=== PATIENT | male | born 1950 | race Caucasian/White ===

== ENCOUNTER 2016-06-11 14:38 | Observation (INO) | payer BC, OTHER ==
[~2016-06-11] VITALS: Ht 175.3 cm; Wt 72.6 kg
[2016-06-11 15:42] LABS: Albumin 3.8 g/dL (3.4-5.0); Anion Gap 8 (5-15); Aspartate Aminotransferase 92 U/L (15-37); BUN/Creatinine Ratio 14.6; Basophils # (auto) 0 uL; Basophils % (auto) 0.1 % (0.0-2.0); Blood Urea Nitrogen 14 mg/dL (7-18); Calcium 8.9 mg/dL (8.5-10.1); Carbon Dioxide 26 mmol/L (21-32); Chloride 107 mmol/L (98-107); Eosinophils # (auto) 0.1 uL; Eosinophils % (auto) 1.1 % (0.0-7.0); GFR African American 101 mL/min; GFR Non-African American 84 mL/min; Glucose 125 mg/dL (74-106); Hematocrit 42.2 % (41.0-53.0); Hemoglobin 14.1 g/dL (13.5-17.5); Lymphocytes # (auto) 0.7 uL; Lymphocytes % (auto) 8.2 % (10.0-50.0); Mean Corpuscular Hemoglobin 32.6 pg (28.0-32.0); Mean Corpuscular Hgb Conc. 33.3 g/dL (32.0-36.0); Mean Corpuscular Volume 97.9 fL (80.0-100.0); Mean Platelet Volume 8.8 fL (7.4-10.4); Monocytes # (auto) 0.7 uL; Monocytes % (auto) 8.5 % (0.0-12.0); Neutrophils # (auto) 6.5 uL; Neutrophils % (auto) 82.1 % (37.0-80.0); Platelet Count (auto) 164 10^3/uL (140-450); Potassium 4.3 mmol/L (3.5-5.1); Red Cell Distribution Width 14.9 % (11.6-16.0); Sodium 141 mmol/L (136-145)
[2016-06-11 15:46] LABS: Alkaline Phosphatase 347 U/L (45-117); Bilirubin, Total 3.6 mg/dL (0.2-1.0); Total Protein 8.3 g/dL (6.4-8.2)
[2016-06-11 17:37] LABS: Magnesium 2.3 mg/dL (1.6-2.6)
[2016-06-11 17:53] LABS: Partial Thromboplastin Time 27.8 sec (22.64-33.71)
[2016-06-11 19:04] LABS: INR 1.25 (0.9-1.15); Prothrombin Time 12.9 sec (9.37-12.3)
[2016-06-11 21:08] LABS: Urine Blood Negative /uL (Negative); Urine Glucose Normal (Normal); Urine Ketone Negative (Negative); Urine Nitrite Negative (Negative); Urine RBC <1 /hpf (0 - 3); Urine Urobilinogen >12.0 mg/dL (Negative)
[2016-06-11 21:09] LABS: Urine Color Brown (Yellow)
[2016-06-11 21:11] LABS: Urine Bilirubin 2+ (Negative)
[2016-06-11] MEDS ORDERED: ONDANSETRON HCL 4 MG/2 ML VIAL ONE (21:20)
[2016-06-11] MEDS ORDERED: ACETAMINOPHEN 325 MG TAB PO ONE ×2 (21:20→21:30)
[2016-06-11] MEDS ORDERED: ONDANSETRON HCL 4 MG/2 ML VIAL IV ONE (21:30)
[2016-06-11 23:18] VITALS: BP 117/65
== END 2016-06-11 23:29 | disposition left against medical advice (07) | DRG 446 ==
LOC: ER 14:38 → OVERFLOW 17:13 → ER 23:29
PROVIDERS: ADMIT Family Medicine; ATTEND Family Medicine
DX: K80.20 Calculus of gallbladder without cholecystitis without obstruction (principal); N20.0 Calculus of kidney; R79.89 Other specified abnormal findings of blood chemistry; K21.9 Gastro-esophageal reflux disease without esophagitis; I10 Essential (primary) hypertension; Z82.49 Family history of ischemic heart disease and other diseases of the circulatory system; Z83.3 Family history of diabetes mellitus; Z96.619 Presence of unspecified artificial shoulder joint
CPT/HCPCS: 36415; 71010; 74176; 80053; 81001; 82140; 82150; 83690; 83735; 84484; 85025; 85610; 85730; 87040; 87086; 93005; 96374; 99285; G0378; J2405

== ENCOUNTER 2018-01-08 14:53 | Inpatient (IN) | payer MEDICARE ==
[~2018-01-08] VITALS: Ht 172.7 cm; Wt 78.3 kg
[2018-01-08] MEDS ORDERED: PANTOPRAZOLE 40 MG/10 ML VIAL IV STA (16:04)
[2018-01-08] MEDS ORDERED: MORPHINE SULFATE 4 MG/ML SYR/VIAL IV ONE (16:15)
[2018-01-08] MEDS ORDERED: ONDANSETRON HCL 4 MG/2 ML VIAL IV ONE (16:15)
[2018-01-08 16:43] LABS: Basophils # (auto) 0 uL; Basophils % (auto) 0.2 % (0.0-2.0); Eosinophils # (auto) 0 uL; Hemoglobin 15.9 g/dL (13.5-17.5); Lymphocytes # (auto) 0.3 uL; Monocytes # (auto) 0.4 uL; White Blood Cell 7.4 10^3/uL (4.4-10.8)
[2018-01-08 16:44] LABS: Eosinophils % (auto) 0.3 % (0.0-7.0); Hematocrit 45.4 % (41.0-53.0); Lymphocytes % (auto) 3.5 % (10.0-50.0); Mean Corpuscular Hemoglobin 35.1 pg (28.0-32.0); Mean Corpuscular Hgb Conc. 35.1 g/dL (32.0-36.0); Monocytes % (auto) 5.7 % (0.0-12.0); Neutrophils # (auto) 6.7 uL; Neutrophils % (auto) 90.3 % (37.0-80.0); Platelet Count (auto) 98 10^3/uL (140-450); Red Blood Cells 4.54 10^6/uL (4.5-5.90); Red Cell Distribution Width 14.2 % (11.8-14.3)
[2018-01-08 16:55] LABS: Albumin 3.7 g/dL (3.4-5.0); BUN/Creatinine Ratio 16.4; INR 1.37 (0.9-1.15); Magnesium 2.4 mg/dL (1.6-2.6); Partial Thromboplastin Time 26.8 sec (23.78-33.04); Potassium 4.1 mmol/L (3.5-5.1); Prothrombin Time 14.4 sec (9.27-12.13)
[2018-01-08 16:58] LABS: Bilirubin, Total 7.9 mg/dL (0.2-1.0); Total Protein 8.2 g/dL (6.4-8.2)
[2018-01-08] MEDS ORDERED: MORPHINE SULFATE 4 MG/ML SYR/VIAL IV PRN ×2 (19:00)
[2018-01-08] MEDS ORDERED: LORazepam 2MG/ML-1ML VIAL IV PRN (19:00)
[2018-01-08] MEDS ORDERED: DEXTROSE (50%) 50ML SYRG IV PRN (19:00)
[2018-01-08] MEDS ORDERED: ONDANSETRON HCL 4 MG/2 ML VIAL IV PRN (19:00)
[2018-01-08] MEDS ORDERED: NITROGLYCERIN 0.4 MG SL TAB SL PRN (19:00)
[2018-01-08] MEDS ORDERED: LEVOFLOXACIN 500MG 100 ML IV ONE (19:00)
[2018-01-08] MEDS: PANTOPRAZOLE 40 MG/10 ML VIAL IV ONE ×2 (19:26→19:31)
[2018-01-08] MEDS: SODIUM CHLORIDE 0.9% 1,000 ML IV SCH (19:26)
[2018-01-08 20:00] LABS: Urine Bacteria NONE SEEN /hpf (None Seen); Urine Blood Negative /uL (Negative); Urine Mucus FEW (None Seen); Urine WBC 4 /hpf (0 - 3)
[2018-01-08 21:50] VITALS: BP 139/79
[2018-01-08 22:00] VITALS: BP 139/79
[2018-01-08] MEDS: MORPHINE SULFATE 4 MG/ML SYR/VIAL IV PRN (22:28)
[2018-01-08] MEDS: InsuLIN REG 1unit/0.01ml Soln (100units/ml) SC SCH (23:38)
[2018-01-08] MEDS: ACCU-CHEK COMFORT CURVE STRIP VI SCH (23:38)
[2018-01-08] MEDS: metroNIDAZOLE 500MG/100ML 100 ML IV SCH (23:38)
[2018-01-09] MEDS ORDERED: ACETAMINOPHEN 325 MG TAB PO PRN (00:30)
[2018-01-09] MEDS ORDERED: PRO20T GT (01:40)
[2018-01-09] MEDS ORDERED: ALLO100T PO (01:40)
[2018-01-09] MEDS ORDERED: PANT40TA2 PO (01:40)
[2018-01-09] MEDS ORDERED: COLC1CAP PO (01:40)
[2018-01-09] MEDS ORDERED: FOLI1TAB6 PO (01:40)
[2018-01-09] MEDS ORDERED: LACT10SO3 PO (01:40)
[2018-01-09 05:00] VITALS: BP 107/70
[2018-01-09] MEDS: SODIUM CHLORIDE 0.9% 1,000 ML IV SCH ×2 (05:18→13:44)
[2018-01-09] MEDS: metroNIDAZOLE 500MG/100ML 100 ML IV SCH ×3 (05:55→17:30)
[2018-01-09] MEDS: InsuLIN REG 1unit/0.01ml Soln (100units/ml) SC SCH (05:55)
[2018-01-09] MEDS: ACCU-CHEK COMFORT CURVE STRIP VI SCH (05:55)
[2018-01-09] MEDS: MORPHINE SULFATE 4 MG/ML SYR/VIAL IV PRN (06:24)
[2018-01-09 06:25] LABS: Basophils # (auto) 0 uL; Basophils % (auto) 0.3 % (0.0-2.0); Eosinophils # (auto) 0 uL; Monocytes # (auto) 0.7 uL; Nucleated Red Blood Cells % 0.1 %; Platelet Count (auto) 89 10^3/uL (140-450)
[2018-01-09 06:28] LABS: Eosinophils % (auto) 0.3 % (0.0-7.0); Hematocrit 40.7 % (41.0-53.0); Hemoglobin 14.3 g/dL (13.5-17.5); Lymphocytes # (auto) 0.8 uL; Lymphocytes % (auto) 10.4 % (10.0-50.0); Mean Corpuscular Hemoglobin 35.3 pg (28.0-32.0); Mean Corpuscular Hgb Conc. 35.2 g/dL (32.0-36.0); Mean Corpuscular Volume 100.1 fL (80.0-100.0); Monocytes % (auto) 9.6 % (0.0-12.0); Neutrophils # (auto) 5.9 uL; Neutrophils % (auto) 79.4 % (37.0-80.0); Red Blood Cells 4.07 10^6/uL (4.5-5.90); Red Cell Distribution Width 14.2 % (11.8-14.3); White Blood Cell 7.4 10^3/uL (4.4-10.8)
[2018-01-09 06:47] LABS: Calcium 7.9 mg/dL (8.5-10.1); Potassium 3.9 mmol/L (3.5-5.1)
[2018-01-09 06:49] LABS: BUN/Creatinine Ratio 15.8
[2018-01-09 06:51] LABS: Bilirubin, Total 8.8 mg/dL (0.2-1.0)
[2018-01-09 07:55] VITALS: BP 97/61
[2018-01-09 09:16] VITALS: BP 97/61
[2018-01-09] MEDS: PANTOPRAZOLE 40 MG/10 ML VIAL IV SCH (10:30)
[2018-01-09] MEDS: LEVOFLOXACIN 500MG 100 ML IV SCH (10:30)
[2018-01-09 13:03] VITALS: BP 108/70
[2018-01-09] MEDS: guaiFENesin-DM 100/10mg/5ml SYR PO PRN (14:28)
[2018-01-09 17:00] VITALS: BP 110/61
[2018-01-09] MEDS: ACETAMINOPHEN 325 MG TAB PO PRN (18:32)
[2018-01-09 21:58] VITALS: BP 119/60
[2018-01-09] MEDS: PROMETHAZINE HCL 25 MG/ML 1ML IV PRN (23:09)
[2018-01-10] MEDS: metroNIDAZOLE 500MG/100ML 100 ML IV SCH ×5 (00:20→23:57)
[2018-01-10] MEDS ORDERED: PROCHLORPERAZINE EDISYLATE 5 MG/ML 2ML VIAL IV ONE (01:15)
[2018-01-10] MEDS: SODIUM CHLORIDE 0.9% 1,000 ML IV SCH ×3 (02:58→21:02)
[2018-01-10 05:00] VITALS: BP 120/58
[2018-01-10 07:11] LABS: Basophils # (auto) 0 uL; Basophils % (auto) 0.4 % (0.0-2.0); Eosinophils # (auto) 0 uL; Eosinophils % (auto) 0.6 % (0.0-7.0); Hematocrit 40.5 % (41.0-53.0); Hemoglobin 13.8 g/dL (13.5-17.5); Lymphocytes # (auto) 0.4 uL; Lymphocytes % (auto) 8.3 % (10.0-50.0); Mean Corpuscular Hemoglobin 33.9 pg (28.0-32.0); Mean Corpuscular Volume 99.9 fL (80.0-100.0); Monocytes # (auto) 0.5 uL; Monocytes % (auto) 9.5 % (0.0-12.0); Neutrophils % (auto) 81.2 % (37.0-80.0); Platelet Count (auto) 92 10^3/uL (140-450); Red Blood Cells 4.05 10^6/uL (4.5-5.90); Red Cell Distribution Width 14.3 % (11.8-14.3); White Blood Cell 4.9 10^3/uL (4.4-10.8)
[2018-01-10 07:21] LABS: Albumin 2.8 g/dL (3.4-5.0); Calcium 8.2 mg/dL (8.5-10.1); Potassium 3.8 mmol/L (3.5-5.1)
[2018-01-10 07:23] LABS: BUN/Creatinine Ratio 14.8; Bilirubin, Total 7.9 mg/dL (0.2-1.0); Total Protein 6.8 g/dL (6.4-8.2)
[2018-01-10 09:00] VITALS: BP 121/58
[2018-01-10] MEDS: PANTOPRAZOLE 40 MG/10 ML VIAL IV SCH (09:37)
[2018-01-10] MEDS: LEVOFLOXACIN 500MG 100 ML IV SCH (09:38)
[2018-01-10] MEDS: PROMETHAZINE HCL 25 MG/ML 1ML IV PRN (12:36)
[2018-01-10] MEDS: ACETAMINOPHEN 325 MG TAB PO PRN ×2 (12:36→22:30)
[2018-01-10 13:00] VITALS: BP 108/63
[2018-01-10 17:00] VITALS: BP 112/64
[2018-01-10 22:00] VITALS: BP 132/69
[2018-01-11] MEDS: ACETAMINOPHEN 325 MG TAB PO PRN (04:45)
[2018-01-11] MEDS: guaiFENesin-DM 100/10mg/5ml SYR PO PRN (04:51)
[2018-01-11 05:15] VITALS: BP 125/68
[2018-01-11] MEDS: metroNIDAZOLE 500MG/100ML 100 ML IV SCH ×3 (05:59→17:40)
[2018-01-11] MEDS: SODIUM CHLORIDE 0.9% 1,000 ML IV SCH ×2 (06:04→16:54)
[2018-01-11 08:09] LABS: Basophils # (auto) 0 uL; Basophils % (auto) 0.6 % (0.0-2.0); Eosinophils # (auto) 0.1 uL; Hematocrit 40.4 % (41.0-53.0); Hemoglobin 13.7 g/dL (13.5-17.5); Lymphocytes # (auto) 0.7 uL; Lymphocytes % (auto) 11.7 % (10.0-50.0); Mean Corpuscular Hemoglobin 33.7 pg (28.0-32.0); Mean Corpuscular Hgb Conc. 33.8 g/dL (32.0-36.0); Mean Corpuscular Volume 99.6 fL (80.0-100.0); Monocytes # (auto) 0.6 uL; Neutrophils # (auto) 4.8 uL; Neutrophils % (auto) 76.7 % (37.0-80.0); Platelet Count (auto) 99 10^3/uL (140-450); Red Blood Cells 4.06 10^6/uL (4.5-5.90); Red Cell Distribution Width 14.1 % (11.8-14.3); White Blood Cell 6.2 10^3/uL (4.4-10.8)
[2018-01-11] MEDS: PROMETHAZINE HCL 25 MG/ML 1ML IV PRN (08:24)
[2018-01-11 08:36] LABS: Albumin 2.7 g/dL (3.4-5.0); Potassium 3.7 mmol/L (3.5-5.1)
[2018-01-11 08:40] LABS: Bilirubin, Total 5.7 mg/dL (0.2-1.0); Total Protein 6.6 g/dL (6.4-8.2)
[2018-01-11 09:00] VITALS: BP 137/69
[2018-01-11] MEDS ORDERED: ONDANSETRON HCL 4 MG/2 ML VIAL IV PRN (09:45)
[2018-01-11] MEDS: PANTOPRAZOLE 40 MG/10 ML VIAL IV SCH (10:07)
[2018-01-11] MEDS: LEVOFLOXACIN 500MG 100 ML IV SCH (10:08)
[2018-01-11] MEDS ORDERED: PROCHLORPERAZINE EDISYLATE 5 MG/ML 2ML VIAL IV ONE (11:30)
[2018-01-11 13:00] VITALS: BP 139/77
[2018-01-11] MEDS ORDERED: IOHEXOL 300 MG/ML 100ML BOTTLE IJ ONE (14:39)
[2018-01-11] MEDS ORDERED: SUCCINYLCHOLINE CHLORIDE 20 MG/ML 10ML VIAL IV ONE (15:10)
[2018-01-11] MEDS ORDERED: MEPERIDINE HCL (50 MG/ML) 1 ML VIAL ONE (15:12)
[2018-01-11] MEDS ORDERED: fentaNYL CITRATE 100 MCG/2 ML VL ONE (15:12)
[2018-01-11] MEDS ORDERED: MIDAZOLAM HCL 1MG/1ML-2 ML VIAL ONE (15:12)
[2018-01-11] MEDS ORDERED: DEXAMETHASONE SOD PHOS 10MG/1ML VIAL INJ ONE (15:53)
[2018-01-11] MEDS ORDERED: PROCHLORPERAZINE EDISYLATE 5 MG/ML 2ML VIAL IV PRN (16:00)
[2018-01-11] MEDS ORDERED: KETOROLAC TROMETH 30 MG/ML 1ML VIAL IV ONE (16:15)
[2018-01-11] MEDS ORDERED: ONDANSETRON HCL 4 MG/2 ML VIAL IV ONE (16:15)
[2018-01-11] MEDS ORDERED: HYDROmorphone HCL 2 MG/ML VL IV PRN (16:15)
[2018-01-11] MEDS ORDERED: ePHEDrine SULFATE 50 MG/ML AMP IV PRN (16:15)
[2018-01-11] MEDS ORDERED: MORPHINE SULFATE 4 MG/ML SYR/VIAL IV PRN (16:15)
[2018-01-11] MEDS ORDERED: LABETALOL HCL 5 MG/ML 4ML SYRINGE IV PRN (16:15)
[2018-01-11] MEDS ORDERED: PROPOFOL 10 MG/ML 20 ML IV ONE (16:28)
[2018-01-11 17:46] VITALS: BP 117/71
[2018-01-11] MEDS ORDERED: MORPHINE SULFATE 4 MG/ML SYR/VIAL IV ONE (18:00)
[2018-01-11 22:00] VITALS: BP 128/83
[2018-01-12] MEDS: metroNIDAZOLE 500MG/100ML 100 ML IV SCH ×3 (00:30→12:17)
[2018-01-12] MEDS: guaiFENesin-DM 100/10mg/5ml SYR PO PRN (00:48)
[2018-01-12] MEDS: SODIUM CHLORIDE 0.9% 1,000 ML IV SCH ×2 (02:54→12:54)
[2018-01-12] MEDS: ACETAMINOPHEN 325 MG TAB PO PRN (04:49)
[2018-01-12 05:00] VITALS: BP 119/67
[2018-01-12 05:12] LABS: Hemoglobin 14.2 g/dL (13.5-17.5)
[2018-01-12 05:13] LABS: Hematocrit 40.7 % (41.0-53.0); Mean Corpuscular Hemoglobin 34.8 pg (28.0-32.0); Mean Corpuscular Hgb Conc. 34.9 g/dL (32.0-36.0); Mean Corpuscular Volume 99.7 fL (80.0-100.0); Platelet Count (auto) 109 10^3/uL (140-450); Red Blood Cells 4.08 10^6/uL (4.5-5.90); Red Cell Distribution Width 14.2 % (11.8-14.3); White Blood Cell 3.2 10^3/uL (4.4-10.8)
[2018-01-12 05:15] LABS: Band Neutrophils % (manual) 0; Basophils % (manual) 0 (0.0-2.0); Blast Cells 0; Eosinophils % (manual) 0 (0-7); Metamyelocytes % 0; Myelocytes % 0; Promyelocytes % 0
[2018-01-12 05:26] LABS: Albumin 2.8 g/dL (3.4-5.0); BUN/Creatinine Ratio 14.8
[2018-01-12 05:28] LABS: Bilirubin, Total 5.6 mg/dL (0.2-1.0); Total Protein 6.8 g/dL (6.4-8.2)
[2018-01-12 05:41] LABS: Lymphocytes % (manual) 12 (10.0-50.0); Monocytes % (manual) 3 (0-12); Reactive Lymphocytes 1
[2018-01-12 09:20] VITALS: BP 121/67
[2018-01-12] MEDS ORDERED: POTASSIUM CHL 20 Meq TABLET PO ONE (10:15)
[2018-01-12 10:32] VITALS: BP 121/67
[2018-01-12] MEDS: LEVOFLOXACIN 500MG 100 ML IV SCH (10:51)
[2018-01-12] MEDS: PANTOPRAZOLE 40 MG/10 ML VIAL IV SCH (10:51)
[2018-01-12 13:36] VITALS: BP 124/71
== END 2018-01-12 15:40 | disposition home or self-care (01) | DRG 445 ==
LOC: ER 14:53 → TELE 14:54 → TELE-WESTW 21:52
PROVIDERS: ADMIT Internal Medicine; ATTEND Family Medicine
PROC: 0F798DZ Dilation of Common Bile Duct with Intraluminal Device, Via Natural or Artificial Opening Endoscopic (ICD-10-PCS; 2018-01-11)
PROC: 0FC98ZZ Extirpation of Matter from Common Bile Duct, Via Natural or Artificial Opening Endoscopic (ICD-10-PCS; principal; 2018-01-11 15:25)
DX: K80.71 Calculus of gallbladder and bile duct without cholecystitis with obstruction (principal); D68.9 Coagulation defect, unspecified; D69.6 Thrombocytopenia, unspecified; I10 Essential (primary) hypertension; K21.9 Gastro-esophageal reflux disease without esophagitis; K70.31 Alcoholic cirrhosis of liver with ascites; K57.90 Diverticulosis of intestine, part unspecified, without perforation or abscess without bleeding; Z96.612 Presence of left artificial shoulder joint; Z53.20 Procedure and treatment not carried out because of patient's decision for unspecified reasons; Z80.3 Family history of malignant neoplasm of breast; Z82.49 Family history of ischemic heart disease and other diseases of the circulatory system; Z83.3 Family history of diabetes mellitus; Z87.442 Personal history of urinary calculi; Z79.899 Other long term (current) drug therapy; Z88.0 Allergy status to penicillin; Z88.8 Allergy status to other drugs, medicaments and biological substances
CPT/HCPCS: 36415; 71045; 74018; 74176; 74181; 76705; 80053; 81001; 82140; 82150; 82962; 83036; 83690; 83735; 85007; 85025; 85027; 85610; 85730; 86850; 86900; 86901; 93005; 96365; 96375; A6257; C9113; J0330; J1100; J1956; J2250; J2405; J2704; J3490

== ENCOUNTER 2023-09-18 15:29 | Emergency (ER) | payer MEDICARE ==
[~2023-09-18] VITALS: Ht 172.7 cm; Wt 75.2 kg
[~2023-09-18 15:29] MED LIST: ALLO100T PO; COLC1CAP PO; FOLI-119 PO; LACT10SO3 PO; PANT40TA2 PO; PRO20T GT
[2023-09-18 18:35] VITALS: BP 132/68; PULSE 85; RESP 18; TEMP 99.6; O2SAT 94
== END 2023-09-18 18:40 | disposition home or self-care (01) ==
LOC: ER 15:29
DX: R04.0 Epistaxis (principal); K21.9 Gastro-esophageal reflux disease without esophagitis; I10 Essential (primary) hypertension; K74.60 Unspecified cirrhosis of liver; M1A.9XX0 Chronic gout, unspecified, without tophus (tophi); Z88.0 Allergy status to penicillin; Z88.1 Allergy status to other antibiotic agents